=== PATIENT | female | born 1975 | race Caucasian/White ===

== ENCOUNTER 2022-08-07 10:50 | Emergency (ER) | payer BC ==
[~2022-08-07] VITALS: Ht 160 cm; Wt 70.3 kg
[~2022-08-07 10:50] MED LIST: NO MEDS
[2022-08-07 10:54] VITALS: BP 139/57
--- NOTE | 2022-08-07 11:03 | NUR ---
ADRIANA. HANDED ON URINE CUP.
--- NOTE | 2022-08-07 11:11 | NUR ---
BIB DAUGHTER C/O LEFT LOWER BACK PAIN/ LEFT HIP PAIN RADIATING TO LEFT THIGH X 2 WEEKS. DENIES TRAUMA OR DYSURIA. PMH: HYSTERECTOMY
[2022-08-07 11:49] LABS: APPEARANCE,URINE CLEAR (CLEAR); BILIRUBIN,URINE NEGATIVE (NEGATIVE); BLOOD, URINE 1+ (NEGATIVE); COLOR,URINE YELLOW (YELLOW); LEUKOCYTE ESTERASE ,URINE NEGATIVE (NEGATIVE); NITRITE, URINE NEGATIVE (NEGATIVE); UGLUCOSE NEGATIVE (NEGATIVE)
[2022-08-07 12:00] LABS: RBC,URINE 0-5 /HPF (0-5); WBC,URINE 0-5 /HPF (0-5); YEAST,URINE Few /HPF (None Seen)
[2022-08-07] MEDS ORDERED: KETOROLAC 30 MG/ML VIAL IM ONE (13:00)
[2022-08-07] MEDS ORDERED: NAPR-1704 PO ×2 (14:14→14:20)
[2022-08-07] MEDS ORDERED: CAPS1ADH5 TP ×2 (14:14→14:20)
[2022-08-07 14:23] VITALS: BP 139/57
--- NOTE | 2022-08-07 14:23 | NUR ---
Patient discharged with v/s stable. Written and verbal after care instructions given and explained. Patient alert, oriented and verbalized understanding of instructions. Ambulatory with steady gait. All questions addressed prior to discharge. ID band removed. Patient advised to follow up with PMD. Rx of NAPROSYN SALONPAS (SENT) given. Patient educated on indication of medication including possible reaction and side effects. Opportunity to ask questions provided and answered.
== END 2022-08-07 14:23 | disposition home or self-care (01) ==
LOC: MED 10:50
DX: M76.32 Iliotibial band syndrome, left leg (principal)
CPT/HCPCS: 72170; 73502; 81001; 81025; 87086; 96372; 99284; J1885

== ENCOUNTER 2023-02-07 21:38 | Emergency (ER) | payer BC, OTHER ==
[~2023-02-07] VITALS: Ht 147.3 cm; Wt 70.3 kg
[~2023-02-07 21:38] MED LIST changes: +CAPS1ADH5 TP; +NAPR-1704 PO
[2023-02-07 22:20] VITALS: BP 116/73; PULSE 74; RESP 17; TEMP 97.8; O2SAT 97
[2023-02-07 23:34] LABS: APPEARANCE,URINE CLEAR (CLEAR); BILIRUBIN,URINE NEGATIVE (NEGATIVE); BLOOD, URINE NEGATIVE (NEGATIVE); COLOR,URINE YELLOW (YELLOW); LEUKOCYTE ESTERASE ,URINE NEGATIVE (NEGATIVE); NITRITE, URINE NEGATIVE (NEGATIVE); PROTEIN,URINE NEGATIVE (NEGATIVE); UGLUCOSE NEGATIVE (NEGATIVE); UROBILINOGEN,URINE 0.2 EU/dL (0.2 - 1)
[2023-02-07 23:50] LABS: BASOPHILS # (AUTO) 0.1 K/uL (0.00-0.22); BASOPHILS % (AUTO) 0.9 % (0.0-2.0); EOSINOPHILS # (AUTO) 0.2 K/uL (0-0.4); EOSINOPHILS % (AUTO) 1.8 % (0.0-4.0); HEMATOCRIT 39.3 % (36-48); LYMPHOCYTES # (AUTO) 2.4 K/uL (2.5-16.5); LYMPHOCYTES % (AUTO) 23.9 % (20.5-51.1); MEAN CORPUSCULAR HEMOGLOBIN 28 pg (27-31); MEAN CORPUSCULAR HGB CONC 33 g/dL (33-37); MEAN CORPUSCULAR VOLUME 84.2 fL (80-94); MONOCYTES # (AUTO) 0.5 K/uL (0.8-1.0); MONOCYTES % (AUTO) 5.1 % (1.7-9.3); NEUTROPHILS % (AUTO) 68.3 % (42.2-75.2); PLATELET COUNT (AUTO) 333 K/uL (140-450); RED BLOOD CELL COUNT(AUTO) 4.67 MIL/uL (4.20-5.40); RED CELL DISTRIBUTION WIDTH 13.6 % (11.6-13.7); WHITE BLOOD COUNT (AUTO) 10.2 K/uL (4.8-10.8)
[2023-02-07 23:58] LABS: ALBUMIN 3.7 g/dL (3.4-5.0); ANION GAP 12.6 (8-16); CALCIUM 8.7 mg/dL (8.5-10.1); CARBON DIOXIDE 27.9 mmol/L (21-32); CREATININE 0.8 mg/dL (0.6-1.3); POTASSIUM 4.5 mmol/L (3.5-5.1); TOTAL BILIRUBIN 0.2 mg/dL (0.0-1.0); TOTAL PROTEIN, SERUM 7.4 g/dL (6.4-8.2)
[2023-02-08 03:57] VITALS: O2SAT 99
[2023-02-08 09:59] VITALS: BP 114/60; PULSE 71; RESP 18; TEMP 97
== END 2023-02-08 09:55 | disposition home or self-care (01) ==
LOC: MED 21:38
DX: N83.8 Other noninflammatory disorders of ovary, fallopian tube and broad ligament (principal); Z90.49 Acquired absence of other specified parts of digestive tract; Z90.710 Acquired absence of both cervix and uterus; Z79.899 Other long term (current) drug therapy; Z79.1 Long term (current) use of non-steroidal anti-inflammatories (NSAID)
CPT/HCPCS: 36415; 74176; 76856; 80053; 81003; 81025; 83690; 85025; 99284; Q0092; 99283